=== PATIENT | female | born 1955 | race Caucasian/White ===

== ENCOUNTER → 2020-07-12 07:24 | Outpatient (CLI) | payer OTHER, SELFPAY ==
[2020-07-12 11:20] LABS: Influenza Control Positive
[2020-07-12 19:49] LABS: SARS-CoV-2 RNA PCR Negative
== END ==
PROVIDERS: PCP Internal Medicine; Visit Provider Internal Medicine
DX: Z20.822 Contact with and (suspected) exposure to COVID-19 (principal); R68.89 Other general symptoms and signs
CPT/HCPCS: 87804; C9803; U0003; U0005